=== PATIENT | female | born 1960 | race Caucasian/White ===

== ENCOUNTER → 2020-11-05 | Outpatient (CLI) | payer MEDICARE ==
[2020-11-04 16:50] VITALS: BP 108/68
[~2020-11-05] MED LIST: ALDACTONE25 M1 PO; BIOTIN1 M1 PO; DIGOXIN125 MCG PO; IRON90 MG PO; LASIX40 M1 PO; LEXAPRO20 M1 PO; MIDODRINE HCL10 MG PO; MIRALAX17 GM PO; PANTOPRAZOLE SO40 MG PO; STOOL SOFTENER1 TAB PO; TOPROL XL 25MG25 MG PO; WELLBUTRIN XL300 M1 PO; ZESTRIL5 M1 PO
== END ==
LOC: LAB 14:53
DX: Z86.79 Personal history of other diseases of the circulatory system (principal)

== ENCOUNTER → 2020-11-07 | Outpatient (CLI) | payer MEDICARE ==
[2020-11-04 16:50] VITALS: BP 108/68
== END ==
LOC: CARDREHAB 09:41
DX: I50.22 Chronic systolic (congestive) heart failure (principal)
CPT/HCPCS: A9500

== ENCOUNTER 2020-12-19 14:25 | Emergency (ER) | payer MEDICARE ==
[~2020-12-19] VITALS: Ht 162.6 cm; Wt 75.5 kg
[2020-12-19 18:16] LABS: BASO # 0.1 (0.02-0.10); EOS % 0.4 % (1.0-5.0); HEMATOCRIT 43.4 % (37.0-47.0); HEMOGLOBIN 14.8 g/dL (12.5-16.0); LYMPH# 2.3 (1.50-4.00); MEAN CELL VOLUME 88 fl (78-100); MEAN CORPUSCULAR HEMOGLOBIN 30 pg (27-31); MEAN CORPUSCULAR HGB CONC 34 g/dL (33-37); MEAN PLATELET VOLUME 9.7 fl (7.4-10.4); MONO # 0.8 (0.20-0.80); NEU # 4.5 (1.40-6.50); PLATELET COUNT 298 K/mm3 (130-400); RED BLOOD COUNT 4.92 M/mm3 (4.10-5.30); RED CELL DISTRIBUTION WIDTH 12.4 % (11.5-14.5); WHITE BLOOD COUNT 7.7 K/mm3 (4.8-10.8)
[2020-12-19 19:09] LABS: ERYTHROCYTE SEDIMENTATION RATE 6 mm/hr (0-30)
[2020-12-19 19:26] LABS: PROTHROMBIN TIME 23.7 SECONDS (9.0-12.0)
[2020-12-19 19:48] VITALS: BP 118/85
== END 2020-12-19 19:48 | disposition home or self-care (01) ==
LOC: ED 14:25
PROVIDERS: Family Medicine
DX: T69.1XXA Chilblains, initial encounter (principal); Z95.0 Presence of cardiac pacemaker; Z90.710 Acquired absence of both cervix and uterus; Z90.89 Acquired absence of other organs; Z90.49 Acquired absence of other specified parts of digestive tract; Z88.0 Allergy status to penicillin; Z88.6 Allergy status to analgesic agent; X58.XXXA Exposure to other specified factors, initial encounter

== ENCOUNTER → 2021-02-03 | Outpatient (CLI) | payer MEDICARE | LOC: LAB 16:27 | DX: Z03.89 Encounter for observation for other suspected diseases and conditions ruled out (principal); Z20.822 Contact with and (suspected) exposure to COVID-19 ==

== ENCOUNTER → 2021-03-11 | Outpatient (CLI) | payer MEDICARE | LOC: LAB 15:37 | DX: R05 Cough (principal); Z20.822 Contact with and (suspected) exposure to COVID-19 ==